=== PATIENT | male | born 2000 | race Caucasian/White ===

== ENCOUNTER 2021-02-15 14:29 | Emergency (ER) | payer OTHER, SELFPAY ==
[2021-02-15 14:43] VITALS: BP 130/90; PULSE 116; O2SAT 97
[2021-02-15 14:52] VITALS: BP 118/71; PULSE 100; RESP 18; TEMP 36.2; O2SAT 96; BMI 39.6
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
[2021-02-15 18:00] VITALS: RESP 18
[2021-02-15 19:15] LABS: MANUAL DIFF FLAG NO
[2021-02-15 19:16] LABS: Basophils Absolute Auto 0.1 X10*3/uL (0.0-0.2); Basophils Percent Auto 0.9 % (0-2); Eosinophils Percent Auto 0.6 % (0-4); Hematocrit 46.3 % (42-52); Hemoglobin 15.9 g/dl (14.0-18.0); Imm Gran Abs Auto 0.04 X10*3/uL (0.00-0.03); Imm Gran Pct Auto 0.6 % (0.0-0.4); Lymphocytes Percent Auto 15.8 % (20-40); Mean Corpuscular HGB Conc 34.3 g/dl (31.0-36.0); Mean Corpuscular Hemoglobin 32.5 pg (27.0-33.0); Mean Corpuscular Volume 94.7 fL (80-98); Mean Platelet Volume 9.2 fL (9.4-12.4); Monocytes Absolute Auto 0.7 X10*3/uL (0.1-1.2); Monocytes Percent Auto 11.2 % (2-11); Neutrophils Absolute Auto 4.5 X10*3/uL (2.0-8.3); Neutrophils Percent Auto 70.9 % (45-73); Platelet Count 191 X10*3/uL (160-400); Red Blood Count 4.89 X10*6/uL (4.60-5.80); Red Cell Distribution Width 13.4 % (11.0-16.0); White Blood Count 6.3 X10*3/uL (4.8-10.8)
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
[2021-02-15] MEDS: LORazepam 1 MG TABLET PO (19:36)
[2021-02-15 19:41] LABS: Glucose Urine UA NEG (NEG); Leukocyte Esterase Urine NEG (NEG); Nitrite Urine NEG (NEG); PH 6.5 (5.0-8.0); Urine Blood NEG (NEG); Urine Ketones NEG (NEG); Urine Protein NEG (NEG-TRACE)
[2021-02-15 19:43] LABS: Appearance Urine CLEAR; Color Urine YELLOW
[2021-02-15 19:44] LABS: Alanine Aminotransferase 40 U/L (0-40); Albumin Level 4.3 g/dL (3.5-5.0); Alkaline Phosphatase 151 U/L (39-117); Anion Gap 13 (12-20); Aspartate Amino Transferase 20 U/L (5-37); Bilirubin Total 0.4 mg/dL (0.0-1.0); Blood Urea Nitrogen 19 mg/dL (9-16); Calcium 9.3 mg/dL (8.4-10.2); Carbon Dioxide 24 mmol/L (22-29); Chloride 105 mmol/L (96-108); Creatinine Clr Calc Pharmacy 135.5; Estimated Glomerular Filt Rate > 60; Glucose Random 110 mg/dL (60-115); Potassium 3.7 mmol/L (3.3-5.1); Sodium 138 mmol/L (135-145); Total Protein 7.8 g/dL (6.5-8.0)
[2021-02-15 19:48] LABS: Bacteria Urine TRACE /LPF; RBC Urine 0 /HPF (0); WBC Urine 0 /HPF (0-4)
== END 2021-02-15 20:46 | disposition home or self-care (01) ==
PROVIDERS: Nurse Practitioner Primary Care; Emergency Provider Internal Medicine
DX: F91.9 Conduct disorder, unspecified (principal); F41.9 Anxiety disorder, unspecified; Q90.9 Down syndrome, unspecified; F84.0 Autistic disorder; Z79.899 Other long term (current) drug therapy
CPT/HCPCS: 36415; 80053; 81001; 85025; 99284; 99285

== ENCOUNTER 2021-10-16 14:45 | Emergency (ER) | payer OTHER, SELFPAY ==
[2021-10-16 14:56] VITALS: BP 127/84; PULSE 105; RESP 18; O2SAT 96; BMI 47.2
--- NOTE | 2021-10-16 15:01 | ED.PSYCH ---
HPI - Psych General Chief Complaint: Psychiatric Symptoms Stated Complaint: SECTION 12,AGRESSIVE @ LONG-TERM Time Seen by Provider: 10/16/21 14:56 Source: EMS Mode of arrival: EMS Limitations: other (Intellectual disability) History of Present Illness HPI Narrative: This is a 21 years old patient with history of Down syndrome, autistic spectrum disorder, [facility] resident, was sent here by the group because agitation, a arrived on a Section 12. Patient is unable to give any history secondary to his intellectual disability,he is calm during my exam MD complaint: other (agitation) Onset (ago): hour(s) (1) Duration: constant History of same: Yes Relieving factors: none Exacerbating factors: none Associated psychiatric symptoms: none Treatments prior to arrival: none Related Data Home Medications Medication Instructions Recorded Confirmed cetirizine 10 mg tablet 1 tab PO DAILY 02/15/21 02/15/21 clonidine HCl 0.1 mg tablet 1 tab PO BID 02/15/21 02/15/21 hydrocortisone 1 % topical cream 1 appl TOPICAL NEEDED 02/15/21 02/15/21 ketoconazole 2 % shampoo 1 appl TOPICAL NEEDED 02/15/21 02/15/21 lorazepam 1 mg tablet 1 tab PO BID 02/15/21 02/15/21 melatonin 3 mg tablet 1 tab PO DIRECTED 02/15/21 02/15/21 omeprazole 20 mg capsule,delayed 1 cap PO DAILY 02/15/21 02/15/21 release oxcarbazepine 300 mg tablet 1 tab PO BID 02/15/21 02/15/21 risperidone 0.5 mg tablet 1 tab PO BEDTIME 02/15/21 02/15/21 sertraline 25 mg tablet 25 mg PO DAILY 02/15/21 02/15/21 trazodone 50 mg tablet 1 tab PO BEDTIME 02/15/21 02/15/21 Allergies Allergy/AdvReac Type Severity Reaction Status Date / Time No Known Allergies Allergy Unverified 06/30/20 19:37 [No Known Allergies*] Review of Systems Review of Systems: Yes all other systems are reviewed and are negative Respiratory: Comments: No reported cough or shortness of breath Gastrointestinal: Comments: No reported vomiting or diarrhea PMFSH Past Medical History PMFSH Narrative: History of down syndrome History of autistic spectrum disorder Medical History Down syndrome Social History Social History Advance Directives: No Advance Directives Information Provided: No Physical Exam Vital Signs: Vital Signs: Last Vital Signs Pulse 105 H 10/16/21 14:56 Resp 18 10/16/21 14:56 BP 127/84 10/16/21 14:56 Pulse Ox 96 10/16/21 14:56 BMI result Body Mass Index 47.2 Const: Other: He awake alert in not acute distress General: no acute distress Limitations: other limitations (intellectual disability) HENMT: Head: Yes normal to inspection Face and sinus: Yes normal facial exam Mouth: Normal oral and palatal mucosa present Neck: Neck: Yes normal visual inspection and Yes full ROM Thyroid: warm Chest: Chest palpation & inspection: normal inspection of the chest Resp: Effort & Inspection: normal respiratory effort Auscultation: clear to auscultation bilaterally Cardio: Jugular venous distension: no JVD Rate: regular rate Rhythm: regular rhythm GI: Inspection: Yes normal to inspection Palpation (GI): Soft to palpation Skin: General skin exam: no rashes or lesions noted Rashes: no rashes Course Reevaluation(s) Reevaluation #1: pt was signed out to Dr Dawson MDM - Psych Lab Data Labs: Lab Results 10/16/21 10/16/21 Range/Units 15:54 17:03 Urine Opiates Screen Not Detected (Not Detect) Urine Fentanyl Screen POSITIVE H (Not Detect) Ur Barbiturates Screen Not Detected (Not Detect) Ur Phencyclidine Scrn Not Detected (Not Detect) Ur Amphetamines Screen Not Detected (Not Detect) U Benzodiazepines Scrn Not Detected (Not Detect) Urine Cocaine Screen Not Detected (Not Detect) U Marijuana (THC) Screen Not Detected (Not Detect) COVID-19 (TEJ) Negative (Negative) COVID-19 Clin Com See Note Discharge Plan Discharge Clinical Impression: Down syndrome, Acute anxiety Prescriptions: No Action clonidine HCl 0.1 mg tablet 1 tab PO BID RF: 0 ketoconazole 2 % shampoo 1 appl topical NEEDED RF: 0 trazodone 50 mg tablet 1 tab PO BEDTIME RF: 0 cetirizine 10 mg tablet 1 tab PO DAILY RF: 0 oxcarbazepine 300 mg tablet 1 tab PO BID RF: 0 melatonin 3 mg tablet 1 tab PO DIRECTED RF: 0 hydrocortisone 1 % cream 1 appl topical NEEDED RF: 0 sertraline 25 mg tablet 25 mg PO DAILY RF: 0 omeprazole 20 mg capsule,delayed release(DR/EC) 1 cap PO DAILY RF: 0 lorazepam 1 mg tablet 1 tab PO BID RF: 0 risperidone 0.5 mg tablet 1 tab PO BEDTIME RF: 0
--- NOTE | 2021-10-16 16:03 | PC.NURSE ---
Pt calm, DDS worker with patient at this time. Rash noted to trunk of patient, unsure of it being a new rash or chronic per DDS worker. [place] and pantera beth given to Pt. Pt will not answer any SI HI questions at this time. Seen by DOMINIQUE in the [facility]. Will continue to monitor.
[2021-10-16 16:51] LABS: COVID-19 Test Negative (Negative)
[2021-10-16 17:30] LABS: Amphetamine Screen Urine Not Detected (Not Detect); Barbiturates, Urine Not Detected (Not Detect); Benzodiazepines Screen Urine Not Detected (Not Detect); Cannabinoid Screen Urine Not Detected (Not Detect); Cocaine Screen Urine Not Detected (Not Detect); Fentanyl, urine POSITIVE (Not Detect); Opiate Screen Urine Not Detected (Not Detect); Phencyclidine Screen Urine Not Detected (Not Detect)
[2021-10-16] MEDS: Melatonin 3 MG TABLET 6 MG PO (22:48)
[2021-10-16] MEDS: risperiDONE 0.5 MG TABLET PO (22:48)
[2021-10-16] MEDS: cloNIDine HCL 0.1 MG TABLET PO (22:48)
[2021-10-16] MEDS: OXcarbazepine 300 MG TABLET PO (22:48)
[2021-10-16] MEDS: LORazepam 1 MG TABLET PO (22:52)
[2021-10-16 22:53] VITALS: BP 124/84; PULSE 70
[2021-10-16] MEDS: traZODone HCL 50 MG TABLET PO (23:01)
[2021-10-16 23:31] VITALS: BP 111/64; PULSE 63; RESP 18; TEMP 36.6; O2SAT 99
--- NOTE | 2021-10-17 05:51 | PC.NURSE ---
Patient slept through the night, no distress observed/reported, behavior appropriate, cooperative, and non concerning, medication compliant, appetite good, elimination intact, pending BHN evaluation in the morning, intermediate director (Miesha) called and notified that she would like take patient back to her intermediate but was advised to speak with BHN, N not comfortable to send patient back to group instead want to hold patient in ED POD and evaluate in the morning, intermediate staff at bedside round the clock, VSS, will continue to monitor
--- NOTE | 2021-10-17 07:19 | PC.NURSE ---
patient appears to remain asleep at present respirations are even and unlabored, patient appears in no distress
[2021-10-17] MEDS: Sertraline HCL 25 MG TABLET 12.5 MG PO (09:06)
[2021-10-17] MEDS: Omeprazole 20 MG CAPSULE.DR PO (09:06)
[2021-10-17] MEDS: OXcarbazepine 300 MG TABLET PO (09:06)
[2021-10-17] MEDS: LORazepam 1 MG TABLET PO (09:06)
[2021-10-17] MEDS: cloNIDine HCL 0.1 MG TABLET PO ×2 (09:06→16:05)
[2021-10-17] MEDS: Loratadine 10 MG TABLET PO (09:07)
[2021-10-17 09:30] VITALS: BP 115/75; PULSE 75; RESP 16; TEMP 36.8; O2SAT 95
== END 2021-10-17 16:22 | disposition home or self-care (01) ==
PROVIDERS: Emergency Provider Emergency Medicine
DX: Q90.9 Down syndrome, unspecified (principal); F41.9 Anxiety disorder, unspecified; Z20.822 Contact with and (suspected) exposure to COVID-19; R45.1 Restlessness and agitation; F79 Unspecified intellectual disabilities; Z79.899 Other long term (current) drug therapy
CPT/HCPCS: 36415; 80307; 87635; 99284; 99285

== ENCOUNTER 2021-10-18 10:02 | Emergency (ER) | payer OTHER, SELFPAY ==
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
[2021-10-18 10:13] VITALS: BP 119/68; BP 157/98; PULSE 106; PULSE 92; RESP 18; O2SAT 100; O2SAT 96; BMI 43.0
[2021-10-18 10:54] LABS: COVID-19 Test Negative (Negative); IDNOW Serial# 9DD0AD1C
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
[2021-10-18] MEDS: LORazepam 1 MG TABLET PO (13:28)
[2021-10-18] MEDS: cloNIDine HCL 0.1 MG TABLET PO (13:28)
[2021-10-18] MEDS: Haloperidol Lactate 5 MG/ML VIAL IM (18:25)
[2021-10-18] MEDS: LORazepam 2 MG/ML VIAL IM (18:26)
--- NOTE | 2021-10-19 02:06 | PC.NURSE ---
PT in bed resting at this time, staff member at bedside. PT VS, still need to collect urine. PT to be reevaluated in the am.
[2021-10-19 06:12] VITALS: BP 133/76; PULSE 94; RESP 20; TEMP 36.8; O2SAT 95
[2021-10-19] MEDS: Sertraline HCL 25 MG TABLET 37.5 MG PO (10:38)
[2021-10-19] MEDS: OXcarbazepine 300 MG TABLET PO (10:38)
[2021-10-19] MEDS: LORazepam 1 MG TABLET PO (10:39)
[2021-10-19] MEDS: Loratadine 10 MG TABLET PO (10:39)
[2021-10-19] MEDS: Omeprazole 20 MG CAPSULE.DR PO (10:39)
== END 2021-10-19 14:01 | disposition still patient (30) ==
PROVIDERS: Physician Assistant; Emergency Provider Emergency Medicine
DX: F41.9 Anxiety disorder, unspecified (principal); Q90.9 Down syndrome, unspecified; R45.1 Restlessness and agitation; Z20.822 Contact with and (suspected) exposure to COVID-19; F84.0 Autistic disorder; Z79.899 Other long term (current) drug therapy
CPT/HCPCS: 87635; 96372; 99285; J2060

== ENCOUNTER 2022-04-04 11:43 | Emergency (ER) | payer MEDICARE, SELFPAY ==
--- NOTE | 2022-04-04 11:52 | ED_ITS ---
HPI - Psych General Chief Complaint: Psychiatric Symptoms Stated Complaint: AGITATED AT ALF,NEEDS EVAL PER EMS Time Seen by Provider: 04/04/22 11:51 Source: EMS Mode of arrival: EMS Limitations: no limitations History of Present Illness HPI Narrative: Patient comes to the emergency room by EMS. Patient is coming from a residential. Earlier today, patient got upset, states he does not want to be at the residential anymore, started tearing up for nature, throwing things. [facility] was called to the residential, but they were an hour away. Therefore, they called EMS. On arrival, patient is calm, cooperative, brought to emergency room. Here in the emergency room, patient has no complaints, states he does not like his residential. Patient denies SI or HI Related Data Home Medications Medication Instructions Recorded Confirmed cetirizine 10 mg tablet 1 tab PO DAILY 02/15/21 04/04/22 clonidine HCl 0.1 mg tablet 1 tab PO TID 02/15/21 04/04/22 lorazepam 1 mg tablet 1 tab PO TID 02/15/21 04/04/22 melatonin 3 mg tablet 2 tab PO BEDTIME 02/15/21 04/04/22 omeprazole 20 mg capsule,delayed 1 cap PO QAM 02/15/21 04/04/22 release oxcarbazepine 300 mg tablet 1 tab PO BID 02/15/21 04/04/22 risperidone 0.5 mg tablet 1 tab PO DAILY@1700 02/15/21 04/04/22 sertraline 25 mg tablet 37.5 mg PO QAM 02/15/21 04/04/22 trazodone 50 mg tablet 1 tab PO BEDTIME 02/15/21 04/04/22 Allergies Allergy/AdvReac Type Severity Reaction Status Date / Time gluten AdvReac Unknown Verified 04/04/22 11:58 Review of Systems Review of Systems: Constitutional : No Weight loss, No Fever, No Chills, No Ni ght Sweats, No Fatigue, No Malaise ENT/Mouth : No Hearing loss, No Ear Pain, No Nasal Congestion, No Sinus Pain, No Hoarseness, No sore throat, No Rhinorrhea, No Swallowing Difficulty Eyes: No Eye Pain, No Swelling, No Redness, No Foreign Body, No Discharge, No Vision Changes Cardiovascular : No Chest Pain, No SOB, No Dyspnea on Exertion, No Orthopnea, No Edema, No Palpitations Respiratory : No Cough, No Sputum, No Wheezing, No Smoke Exposure, No Dyspnea Gastrointestinal : No Nausea, No Vomiting, No Diarrhea, No Constipation, No abdominal Pain, No Hematochezia, No Melena Genitourinary : no irregular bleeding, No Dysuria, No Urinary Frequency, No Hematuria, No Urinary Incontinence, No Urgency, No Flank Pain, No Urinary Flow Changes, No Hesitancy Musculoskeletal : No joint pain, No Myalgias, No Joint Swelling Skin : No Skin Lesions, No rash Neuro : No Weakness, No Numbness, No Paresthesias, No Loss of Consciousness, No Dizziness, No Headache Psych : No Anxiety/Panic, No Depression, No SI/HI/AH/VH, does not like his residential Heme/Lymph: No Bruising, No Bleeding,No Lymphadenopathy Endocrine : No Polyuria, No Polydipsia, No Temperature Intolerance PMFSH Past Medical History Medical History (Updated 04/04/22 @ 11:57 by Roxi Resendiz MD) Down syndrome Social History Social History Alcohol intake: unknown Patient Tobacco Use Status: Tobacco use Unknown Advance Directives: No Advance Directives Information Provided: No Physical Exam Vital Signs: Vital Signs: Last Vital Signs Temp 97.2 F 04/04/22 12:01 Pulse 100 04/04/22 12:01 Resp 18 04/04/22 12:01 BP 113/50 L 04/04/22 12:01 Pulse Ox 94 04/04/22 12:01 O2 Del Method 04/04/22 12:01 BMI result Body Mass Index 41.5 Const: Other: Appearance: Alert. Oriented X3. No acute distress. Eyes: Pupils equal, round and reactive to light. ENT: Pharynx normal. Neck: Normal inspection. Neck supple. No lymph nodes noted. No crepitus CVS: Normal heart rate and rhythm. Pulses normal. Normal S1 and S2 Respiratory: No respiratory distress. Breath sounds normal. No Wheezing. No rales Abdomen: Soft and nontender. No rigidity. No distention. Skin: Skin warm and dry. Normal skin color. Normal skin turgor. Extremities: No lower extremity edema. No Lacerations. No Rash Neuro: Oriented X 3. No motor deficit. No sensory deficit. Moving all extremities. No slurred speech. CN 2 through 12 grossly intact Psych: calm, cooperative, normal affect Course Course Course Narrative: Will get a new talks, the [facility] consult is pending. At this time, patient is not SI or HI. Physician observation started at 11:55 17:10, the [facility] evaluated the patient, patient is not suicidal or homicidal, does not want hurt anybody. They spoke with the residential, they will take him back, patient's sister will pick him up [facility] - Psych Lab Data Labs: Lab Results 04/04/22 04/04/22 04/04/22 Range/Units 13:12 14:56 14:56 Urine Color YELLOW Urine Appearance CLEAR Urine pH 6.0 (5.0-8.0) Ur Specific [place] 1.020 (1.005-1.025) Urine Protein NEG (NEG-TRACE) MG/DL Urine Glucose (UA) NEG (NEG) MG/DL Urine Ketones NEG (NEG) MG/DL Urine Blood NEG (NEG) Urine Nitrite NEG (NEG) Ur Leukocyte Esterase NEG (NEG) Urine Opiates Screen Not Detected (Not Detect) Urine Fentanyl Screen POSITIVE H (Not Detect) Ur Barbiturates Screen Not Detected (Not Detect) Ur Phencyclidine Scrn Not Detected (Not Detect) Ur Amphetamines Screen Not Detected (Not Detect) U Benzodiazepines Scrn Not Detected (Not Detect) Urine Cocaine Screen Not Detected (Not Detect) U Marijuana (THC) Screen Not Detected (Not Detect) COVID-19 (TEJ) Negative (Negative) COVID-19 Clin Com See Note Discharge Plan Discharge Clinical Impression: Change in behavior Patient Disposition: Home, Self-Care Instructions: Anxiety (ED) Additional Instructions: Please follow-up with your primary care physician tomorrow. If you have any worsening or new symptoms, please return to the emergency room or call 911 Prescriptions: No Action clonidine HCl 0.1 mg tablet 1 tab PO TID trazodone 50 mg tablet 1 tab PO BEDTIME cetirizine 10 mg tablet 1 tab PO DAILY oxcarbazepine 300 mg tablet 1 tab PO BID melatonin 3 mg tablet 2 tab PO BEDTIME sertraline 25 mg tablet 37.5 mg PO QAM omeprazole 20 mg capsule,delayed release(DR/EC) 1 cap PO QAM lorazepam 1 mg tablet 1 tab PO TID risperidone 0.5 mg tablet 1 tab PO DAILY@1700
[2022-04-04 11:55] VITALS: BMI 41.5
[2022-04-04 12:01] VITALS: BP 113/50; PULSE 100; RESP 18; TEMP 36.2; O2SAT 94
--- NOTE | 2022-04-04 13:43 | PC.NURSE ---
pt took pm meds per skilled nursing corporate relations director [place] [phone]. calm and cooperative since arrival. has eaten lunch.
[2022-04-04 14:00] LABS: COVID-19 Test Negative (Negative); IDNOW Serial# 16C4AD1C
--- NOTE | 2022-04-04 14:36 | PC.NURSE ---
FACESHEET FAXED TO [facility], CALL MADE OUT. UTOX AND UA CURRENTLY BEING COLLECTED.
--- NOTE | 2022-04-04 15:00 | PC.NURSE ---
HEATHN TO BE HERE LATER TODAY. PT HAS BEEN FOUND BITING HIS HAND, NO SKIN BROKEN. PT ALSO TIGHTENING HIS MASK AROUND HIS WRIST. PER PREVIOUS NOTES BY CARE TEAM, PT HAS TENDENCY TO THROW LUNCH TRAYS. LUNCH TRAYS TO BE CAREFULLY MONITORED.
[2022-04-04 15:16] LABS: Appearance Urine CLEAR; Color Urine YELLOW; Glucose Urine UA NEG (NEG); Leukocyte Esterase Urine NEG (NEG); Nitrite Urine NEG (NEG); Urine Blood NEG (NEG); Urine Ketones NEG (NEG); Urine Protein NEG (NEG-TRACE)
[2022-04-04 15:32] LABS: Amphetamine Screen Urine Not Detected (Not Detect); Barbiturates, Urine Not Detected (Not Detect); Benzodiazepines Screen Urine Not Detected (Not Detect); Cannabinoid Screen Urine Not Detected (Not Detect); Cocaine Screen Urine Not Detected (Not Detect); Fentanyl, urine POSITIVE (Not Detect); Opiate Screen Urine Not Detected (Not Detect); Phencyclidine Screen Urine Not Detected (Not Detect)
--- NOTE | 2022-04-04 15:53 | PC.NURSE ---
[facility] [phone]
[2022-04-04 17:55] VITALS: BP 151/75; PULSE 90; RESP 16; TEMP 36.6; O2SAT 95
== END 2022-04-04 18:09 | disposition home or self-care (01) ==
PROVIDERS: Emergency Provider Emergency Medicine; PCP Nurse Practitioner Family
DX: F91.9 Conduct disorder, unspecified (principal); Z20.822 Contact with and (suspected) exposure to COVID-19; Z79.899 Other long term (current) drug therapy
CPT/HCPCS: 80307; 81003; 87635; 99284; 99285

== ENCOUNTER 2022-05-07 12:38 | Emergency (ER) | payer MEDICARE, MEDICAID, SELFPAY ==
--- NOTE | 2022-05-07 12:46 | ED_ITS ---
HPI - Psych General Chief Complaint: Psychiatric Symptoms Stated Complaint: mental health eval Time Seen by Provider: 05/07/22 12:42 Source: patient and EMS Mode of arrival: EMS Limitations: no limitations History of Present Illness HPI Narrative: Patient comes to the emergency room via EMS from a correction. Since that the patient got upset at the correction staff, started throwing things at them. When police department and EMS showed up to the correction, patient started behaving at his baseline, calm and cooperative. At this time, patient voices no complaints, states that sometimes his left knee hurts but feels much better after an ice pack was applied. Patient denies any injuries to his neck Related Data Home Medications Medication Instructions Recorded Confirmed cetirizine 10 mg tablet 1 tab PO DAILY 02/15/21 04/04/22 clonidine HCl 0.1 mg tablet 1 tab PO TID 02/15/21 04/04/22 lorazepam 1 mg tablet 1 tab PO TID 02/15/21 04/04/22 melatonin 3 mg tablet 2 tab PO BEDTIME 02/15/21 04/04/22 omeprazole 20 mg capsule,delayed 1 cap PO QAM 02/15/21 04/04/22 release oxcarbazepine 300 mg tablet 1 tab PO BID 02/15/21 04/04/22 risperidone 0.5 mg tablet 1 tab PO DAILY@1700 02/15/21 04/04/22 sertraline 25 mg tablet 37.5 mg PO QAM 02/15/21 04/04/22 trazodone 50 mg tablet 1 tab PO BEDTIME 02/15/21 04/04/22 Allergies Allergy/AdvReac Type Severity Reaction Status Date / Time gluten AdvReac Unknown Verified 04/04/22 11:58 Review of Systems Review of Systems: Constitutional : No Weight loss, No Fever, No Chills, No Night Sweats, No Fatigue, No Malaise ENT/Mouth : No Hearing loss, No Ear Pain, No Nasal Congestion, No Sinus Pain, No Hoarseness, No sore throat, No Rhinorrhea, No Swallowing Difficulty Eyes: No Eye Pain, No Swelling, No Redness, No Foreign Body, No Discharge, No Vision Changes Cardiovascular : No Chest Pain, No SOB, No Dyspnea on Exertion, No Orthopnea, No Edema, No Palpitations Respiratory : No Cough, No Sputum, No Wheezing, No Smoke Exposure, No Dyspnea Gastrointestinal : No Nausea, No Vomiting, No Diarrhea, No Constipation, No abdominal Pain, No Hematochezia, No Melena Genitourinary : no irregular bleeding, No Dysuria, No Urinary Frequency, No Hematuria, No Urinary Incontinence, No Urgency, No Flank Pain, No Urinary Flow Changes, No Hesitancy Musculoskeletal : No joint pain, No Myalgias, No Joint Swelling Skin : No Skin Lesions, No rash Neuro : No Weakness, No Numbness, No Paresthesias, No Loss of Consciousness, No Dizziness, No Headache Psych : Anxiety it grew home, angry. Denies SI or HI Heme/Lymph: No Bruising, No Bleeding,No Lymphadenopathy Endocrine : No Polyuria, No Polydipsia, No Temperature Intolerance [facility] Past Medical History Medical History (Updated 05/07/22 @ 13:04 by Deborah Mcdonnell) Anxiety Autism Down syndrome Down syndrome Seizure Social History Social History Alcohol intake: unknown Patient Tobacco Use Status: Tobacco use Unknown Advance Directives: No Advance Directives Information Provided: No Advance Directives on File: No Physical Exam Vital Signs: Vital Signs: Last Vital Signs Temp 98.6 F 05/07/22 12:56 Pulse 84 05/07/22 12:56 Resp 18 05/07/22 12:56 BP 110/63 05/07/22 12:56 Pulse Ox 95 05/07/22 12:56 O2 Del Method 05/07/22 12:56 BMI result Body Mass Index 41.5 Const: Other: Appearance: Alert. Oriented X3. No acute distress. Well appearing Eyes: Pupils equal, round and reactive to light. ENT: Pharynx normal. Neck: Normal inspection. Neck supple. No lymph nodes noted. No crepitus CVS: Normal heart rate and rhythm. Pulses normal. Normal S1 and S2 Respiratory: No respiratory distress. Breath sounds normal. No Wheezing. No rales Abdomen: Soft and nontender. No rigidity. No distention. Skin: Skin warm and dry. Normal skin color. Normal skin turgor. Extremities: No lower extremity edema. No Lacerations. No Rash Neuro: Oriented X 3. No motor deficit. No sensory deficit. Moving all extremities. No slurred speech. CN 2 through 12 grossly intact Psych: calm, cooperative, normal affect Course Course Course Narrative: Patient is calm, cooperative, denies SI or HI. Behavioral health network consult pending. Physician of sedation started at 12:45 13:55 I discussed the patient with the care team. At this time, they do not recommend any further evaluation. Patient is calm, cooperative, patient pain today with symptoms sensation as a month before. Patient is not suicidal homicidal, he is, cooperative. we will go ahead and discharge the patient. Discharge Plan Discharge Clinical Impression: Agitation Patient Disposition: Home, Self-Care Instructions: Normal Exam (ED) Additional Instructions: Please follow-up with your primary care physician tomorrow. If you have any worsening or new symptoms, please return to the emergency room or call 911 Prescriptions: No Action clonidine HCl 0.1 mg tablet 1 tab PO TID trazodone 50 mg tablet 1 tab PO BEDTIME cetirizine 10 mg tablet 1 tab PO DAILY oxcarbazepine 300 mg tablet 1 tab PO BID melatonin 3 mg tablet 2 tab PO BEDTIME sertraline 25 mg tablet 37.5 mg PO QAM omeprazole 20 mg capsule,delayed release(DR/EC) 1 cap PO QAM lorazepam 1 mg tablet 1 tab PO TID risperidone 0.5 mg tablet 1 tab PO DAILY@1700
[2022-05-07 12:56] VITALS: BP 110/63; PULSE 84; RESP 18; TEMP 37; O2SAT 95; BMI 41.5
== END 2022-05-07 14:59 | disposition home or self-care (01) ==
PROVIDERS: Emergency Provider Emergency Medicine
DX: R45.1 Restlessness and agitation (principal); Z79.899 Other long term (current) drug therapy
CPT/HCPCS: 99282